=== PATIENT | male | born 1945 | race Caucasian/White ===

== ENCOUNTER → 2021-09-06 17:05 | Outpatient (BNVA) | payer MEDICARE, SELFPAY | PROVIDERS: Visit Provider Family Medicine | DX: G30.9 Alzheimer's disease, unspecified (principal); F02.80 Dementia in other diseases classified elsewhere, unspecified severity, without behavioral disturbance, psychotic disturbance, mood disturbance, and anxiety; F41.9 Anxiety disorder, unspecified | CPT/HCPCS: 80053; 84443; 85025 ==

== ENCOUNTER 2021-09-28 10:22 | Emergency (ER) | payer MEDICARE, SELFPAY ==
[2021-09-28 10:25] VITALS: BP 143/81; PULSE 82; RESP 16; O2SAT 97
--- NOTE | 2021-09-28 10:37 | CT_ITS ---
WS: [id number] CT HEAD NONCONTRAST HISTORY: fall/closed head injury TECHNIQUE: Contiguous axial imaging performed through the brain in 2.5 mm imaging. Bone and soft tiss ue windows. Sagittal and coronal reformats reviewed. All CT scans at [facility] use at least one of these dose optimization techniques: automated exposure control; mA and/or kV adjustment per pa tient size (includes targeted exams where dose is matched to clinical indication); or iterative recon struction. DLP: 819.08 mGy.cm COMPARISON: None available. No acute intracranial hemorrhage, midline shift or mass effect. Mild atrophy and mild small vessel ischemic disease. Small lacunar infarct RIGHT basal ganglia. Ventricles: Normal size with no hydrocephalus. No inferior displacement of cerebellar tonsils. Paranasal sinuses: Mild mucoperiosteal thickening in the anterior RIGHT ethmoid air cells. No air-flu id levels. Mastoid air cells: Well pneumatized. Calvarium and scalp: Skull is intact with no soft tissue edema or swelling. CT/CT head wo con* [id number] IMPRESSION: 1. No acute intracranial hemorrhage or edema. 2. Mild atrophy and mild small vessel ischemic disease.
--- NOTE | 2021-09-28 10:37 | ED_ITS ---
HPI - General Adult General: Chief complaint: General Medical Stated complaint: FOUND IN FLOOR, UNSURE IF FALL Time Seen by Provider: 09/28/21 10:26 Source: patient Mode of arrival: ambulatory Limitations: no limitations History of Present Illness: 76-year-old male [facility]. He was on the floor but was not sure how long. He denies any pain. Patient regularly will have falls or episodes where he is found on the floor. Called the [facility] dated found him on the sitting on the floor evidently does this often he was unwitnessed they report a blood pressure of 80 systolic he is awake and alert very conversive now but unable to really convey any meaningful immediate information or history because of his dementia. He denies chest pain abdominal pain headache or any other injury. He is able to ambulate and we actually had to put a sitter on him to keep him from crawling out of bed for a time. Onset (ago): minute(s) Location: head Relieving factors: none Exacerbating factors: none Treatments prior to arrival: none Review of Systems General: Reports: ROS unobtainable due to mental status (Limited due to mental status but very broad categories no specific details) PFSH ED PFSH: Medical History (Updated 09/28/21 @ 13:44 by Tristen Toledo DO) Dementia Social History Smoking and tobacco status: never smoked Alcohol intake: never Physical Exam Const: COMMON NORMALS: no acute distress GENERAL APPEARANCE: comfortable ORIENTATION/CONSCIOUSNESS: Yes awake HENMT: COMMON NORMALS: normocephalic, atraumatic and hearing grossly normal bilaterally HEAD & SCALP: normocephalic and atraumatic Eye: COMMON NORMALS: Equal, round and reactive pupils present, EOMs intact bilaterally, conjunctivae normal and no scleral icterus CONJUNCTIVA: Yes conjunctivae normal PUPIL: Yes Equal, round and reactive pupils present Neck/C-Spine: COMMON NORMALS: full ROM, no lymphadenopathy, supple and no JVD Resp: COMMON NORMALS: normal respiratory effort, No retractions, No use of accessory muscles and clear to auscultation bilaterally AUSCULTATION: clear to auscultation bilaterally Cardio: COMMON NORMALS: no JVD, regular rate, regular rhythm and No murmurs present (Cardio) RATE: regular rate RHYTHM: regular rhythm GI: COMMON NORMALS: Soft to palpation and No hepatosplenomegaly present AUSCULTATION: Yes normoactive bowel sounds PALPATION: Yes Soft to palpation, No Tenderness to palpation present (GI), No Guarding due to palpation present (GI) and Yes No hepatosplenomegaly present Extremity: COMMON NORMALS: normal to inspection, capillary refill normal, no clubbing, cyanosis or edema, no calf tenderness and no pedal edema Skin: COMMON NORMALS: no rashes or lesions noted GENERAL SKIN EXAM: no rashes or lesions noted Course Vital Signs: Vital signs: Vital Signs Pulse Rate 82 09/28/21 10:25 Respiratory Rate 16 09/28/21 10:25 Blood Pressure 143/81 09/28/21 10:25 Pulse Oximetry 97 09/28/21 10:25 MDM - General Adult Medical Decision Making Patient allowed exam but only EKGs he would not allow any blood draws. Called and check to the [facility]iary what it happened see HPI known. He has no evidence of particular injuries blood pressure is good at this time I do not have any real reason to force him to allow us to draw blood we tried several times and he continues to refuse. We will go and discharge him back to the [facility] asked him to monitor vitals every 2 hours x3 and report to the primary care doctor. Medical Records I reviewed the patient's medical records. Lab Data I reviewed the patient's lab results. Radiology Impressions Head CT 09/28/21 10:37 IMPRESSION: 1. No acute intracranial hemorrhage or edema. 2. Mild atrophy and mild small vessel ischemic disease. Discharge Plan Discharge Patient Disposition: Home Clinical Impression: Alzheimer's dementia Condition: Stable Prescriptions: No Action donepezil 10 mg tablet 10 mg PO BEDTIME 0RF quetiapine [Seroquel] 100 mg tablet 100 mg PO BID Qty: 60 2RF Vitamin B-12 2,500 mcg Tablet, Sublingual 2,500 mcg PO DAILY 0RF sertraline 100 mg tablet 100 mg PO DAILY 0RF lorazepam 1 mg tablet 1 mg PO BID PRN (Reason: Anxiety) 0RF Discharge Orders: Discharge ED (Routine); Ordered 09/28/21 Ordered By: Tristen Toledo Discharge Diet: Usual diet Discharge Activity: Resume usual activity Patient Instructions: Opioid Safety Activity Restrictions/Additional Instructions: Monitor vitals every 2 hours x3 report to primary physician follow-up as needed. Coding Level of Care Code ED Dish Technician for Maura Biggs
--- NOTE | 2021-09-28 10:38 | ECG_ITS ---
[facility] Test Date: 2021-09-28 Pat Name: Jaden Stanley Department: Room: Gender: Male Senior Accounting Analyst: : 1945 Requested By: Tristen Langford Order Number: [id number] Milly MD: Doris Almazan M.D. Measurements Intervals [place] Rate: 75 P: 59 AK: 176 QRS: 68 QRSD: 84 T: 61 QT: 407 QTc: 457 Interpretive Statements SINUS RHYTHM No previous ECG available for comparison Electronically Signed On 09-28-2021 18:38:08 CDT by Doris Almazan M.D. [id number]
--- NOTE | 2021-09-28 12:38 | ECG_ITS ---
[facility] Test Date: 2021-09-28 Pat Name: Jaden Stanley Department: Room: Gender: Male Emergency Medicine: : 1945 Requested By: Tristen Langford Order Number: [id number] Milly MD: Doris Almazan M.D. Measurements Intervals [place] Rate: 59 P: 58 NC: 184 QRS: 60 QRSD: 90 T: 63 QT: 427 QTc: 423 Interpretive Statements SINUS BRADYCARDIA Compared to ECG 09/28/2021 11:12:47 Sinus rhythm no longer present Electronically Signed On 09-28-2021 18:42:42 CDT by Doris Almazan M.D. [id number]
== END 2021-09-28 14:56 | disposition home or self-care (01) ==
PROVIDERS: Emergency Provider Family Medicine
DX: G30.9 Alzheimer's disease, unspecified (principal); F02.80 Dementia in other diseases classified elsewhere, unspecified severity, without behavioral disturbance, psychotic disturbance, mood disturbance, and anxiety
CPT/HCPCS: 70450; 93005; 99282

== ENCOUNTER 2021-10-28 18:10 | Outpatient (CLI) | payer MEDICARE, SELFPAY ==
[2021-10-28 18:20] LABS: Add Urine Microscopic? NO; Charge for UA Resulting for Rev
[2021-10-28 18:32] LABS: Bilirubin Urine Neg (Negative); Blood Urine Neg (Negative); Glucose Urine UA Norm (Normal); Ketones Urine Negative (Negative); Leukocyte Esterase Urine Negative (Negative); Nitrate Urine Negative (Negative); Protein Urine Neg (Negative); Urine Appearance Clear (CLEAR); Urine Color Yellow (Yellow); Urobilinogen Urine Norm (Negative); pH Urine 7 (5-7)
== END 2021-10-28 18:11 | disposition home or self-care (01) ==
PROVIDERS: Visit Provider Family Medicine
DX: N39.0 Urinary tract infection, site not specified (principal)
CPT/HCPCS: 81003; 87086

== ENCOUNTER → 2023-02-23 15:39 | Outpatient (BNVA) | payer MEDICARE, SELFPAY | PROVIDERS: PCP Family Medicine; Visit Provider Emergency Medicine | DX: I70.90 Unspecified atherosclerosis (principal); J06.9 Acute upper respiratory infection, unspecified | CPT/HCPCS: 71046; 87426 ==

== ENCOUNTER 2023-04-17 11:02 | Emergency (ER) | payer MEDICARE, SELFPAY ==
[2023-04-17 11:02] VITALS: BMI 25.0
[2023-04-17 11:06] VITALS: BP 126/86; PULSE 90; RESP 17; TEMP 37.2; O2SAT 85
[2023-04-17 11:08] VITALS: O2SAT 85
--- NOTE | 2023-04-17 11:10 | XRR_ITS ---
PROCEDURE INFORMATION: Exam: XR Chest Exam date and time: 04/17/2023 11:14 AM Age: 77 years old Clinical indication: Pain; Chest pressure; Additional info: Hypoxia TECHNIQUE: Imaging protocol: Radiologic exam of the chest. Views: 1 view. COMPARISON: CR XR chest 2V* [id number] 02/23/2023 3:50 PM FINDINGS: Lungs: There is no consolidation. Pleural spaces: There is no pleural effusion or pneumothorax. Heart/Mediastinum: Cardiomediastinal contours are unremarkable. Bones/joints: Bones are unremarkable. XR/XR chest 1V portable [id number] IMPRESSION: No acute findings.
--- NOTE | 2023-04-17 11:11 | W.ED.GENADLT ---
HPI - General Adult General: Chief complaint: General Medical Stated complaint: pain all over body Time Seen by Provider: 04/17/23 11:02 History of Present Illness: Patient presents via EMS with complaints of all over body pain. Patient does have severe dementia and has town planner at bedside. Caregiver said when he found him this morning he was hanging with his legs off the bed almost touching the floor with his blanket wadded up behind his low back. He said that every time he tried to move him he complained of pain in his low back in his buttock region. Patient is pleasant at the current and not complaining of any pain. Patient does live in the dementia unit and is usually up in active and walking around continuously. Review of Systems General: Reports: ROS unobtainable due to mental status (Limited by patient's dementia) [facility] ED PFSH: Medical History Dementia Social History Smoking and tobacco/nicotine status: never used tobacco/nicotine Alcohol intake: never Substance/Drug Use: never Physical Exam Const: COMMON NORMALS: no acute distress, average body habitus, no limitations, healthy appearing, alert and well nourished HENMT: COMMON NORMALS: normocephalic, atraumatic, hearing grossly normal bilaterally, external ears normal, Normal external nose present, moist oral mucous membranes and oropharynx normal HEAD & SCALP: normocephalic and atraumatic NOSE: Normal external nose present EXTERNAL EAR: Yes external ears normal Neck/C-Spine: COMMON NORMALS: full ROM, no lymphadenopathy, supple, no meningeal signs, no JVD and Thyroid normal THYROID: Thyroid normal Chest: COMMONS NORMALS: normal inspection of the chest and normal palpation of entire chest wall Resp: COMMON NORMALS: normal respiratory effort, No retractions, No use of accessory muscles and clear to auscultation bilaterally AUSCULTATION: clear to auscultation bilaterally Cardio: COMMON NORMALS: no JVD, regular rate, regular rhythm, S1 normal heart sound present, S2 normal heart sound present, No gallops present (Cardio), No clicks present (Cardio), No murmurs present (Cardio) and No rub (Cardio) RATE: regular rate RHYTHM: regular rhythm HEART SOUNDS: S1 normal heart sound present and S2 normal heart sound present GI: COMMON NORMALS: Normal to inspection, nondistended, normoactive bowel sounds present, Soft to palpation, non-tender, No hepatosplenomegaly present and no masses PALPATION: Yes Soft to palpation and Yes No hepatosplenomegaly present Extremity: NARRATIVE EXTREMITY EXAM: No pain with palpation negative for edema Neuro: SENSORIUM/ORIENTATION: Yes alert MENINGEAL SIGNS: Yes no meningeal signs Course Vital Signs: Vital signs: Vital Signs Temperature 98.9 F 04/17/23 11:06 Pulse Rate 80 04/17/23 12:06 Respiratory Rate 18 04/17/23 12:06 Blood Pressure 129/73 04/17/23 12:06 Pulse Oximetry 90 04/17/23 12:06 Oxygen Delivery Me thod Nasal Cannula 04/17/23 12:06 Oxygen Flow Rate 2 04/17/23 12:06 MDM - General Adult Medical Decision Making Patient was brought in for overall pain but when patient is asked he has no pain. Lab work was obtained which revealed a normal white count normal kidney function and normal urinalysis. Chest x-ray showed no acute findings. Patient be discharged back to the nursing facility to follow-up with his primary care for further evaluation testing. Differential Diagnosis Myalgia, dementia, pain Medical Records I reviewed the patient's medical records. Lab Data I reviewed the patient's lab results. 04/17/23 11:35 04/17/23 11:35 Radiology Impressions Chest X-Ray 04/17/23 11:10 IMPRESSION: No acute findings. Laboratory Results WBC 10.58 10^3/uL (3.29-11.43) 04/17/23 11:35 RBC 5.43 10^6/uL (3.85-5.65) 04/17/23 11:35 Hgb 16.00 g/dL (11.27-16.99) 04/17/23 11:35 Hct 50.1 % (37-53) 04/17/23 11:35 MCV 92.3 fl (82-101) 04/17/23 11:35 MCH 29.5 pg (27-33) 04/17/23 11:35 MCHC 31.9 g/dL (30-55) 04/17/23 11:35 RDW 13.5 % (12.1-15.1) 04/17/23 11:35 Plt Count 256 10^3/cmm (157-399) 04/17/23 11:35 MPV 10.2 fL (7.4-10.4) 04/17/23 11:35 Neut % (Auto) 83.7 % 04/17/23 11:35 Lymph % (Auto) 9.9 % 04/17/23 11:35 [place] % (Auto) 5.1 % 04/17/23 11:35 Eos % (Auto) 0.4 % 04/17/23 11:35 Baso % (Auto) 0.6 % 04/17/23 11:35 Neut # (Auto) 8.86 10^3/uL (1.8-7.7) H 04/17/23 11:35 Lymph # (Auto) 1.1 10^3/uL (0.8-4.8) 04/17/23 11:35 [place] # (Auto) 0.5 10^3/uL (0.2-0.9) 04/17/23 11:35 Eos # (Auto) 0.0 10^3/uL (0.0-0.8) 04/17/23 11:35 Baso # (Auto) 0.1 10^3/uL (0.0-0.1) 04/17/23 11:35 Nucleated RBC % (auto) 0 % 04/17/23 11:35 Nucleated RBCs # 0.0 /100WBC 04/17/23 11:35 Sodium 140 mmol/L (136-145) 04/17/23 11:35 Potassium 4.8 mmol/L (3.5-5.1) 04/17/23 11:35 Chloride 103 mmol/L (98-107) 04/17/23 11:35 Carbon Dioxide 27 mmol/L (22-29) 04/17/23 11:35 Anion Gap 14.8 (5-19) 04/17/23 11:35 BUN 22 mg/dL (8-23) 04/17/23 11:35 Creatinine 1.2 mg/dL (0.7-1.2) 04/17/23 11:35 GFR Calculation Not Reportable 04/17/23 11:35 Glucose 120 mg/dL (65-115) H 04/17/23 11:35 Calculated Osmolality 295 mOsm/kg (285-295) 04/17/23 11:35 Calcium 9.8 mg/dL (8.5-10.5) 04/17/23 11:35 Total Bilirubin 0.4 mg/dL (0.15-1.2) 04/17/23 11:35 AST 22 U/L (0-40) 04/17/23 11:35 ALT 19 U/L (0-41) 04/17/23 11:35 Alkaline Phosphatase 88 U/L (40-130) 04/17/23 11:35 Creatine Kinase 118 U/L (39-308) 04/17/23 11:35 Total Protein 8.6 g/dL (6.6-8.7) 04/17/23 11:35 Albumin 4.8 g/dL (3.5-5.2) 04/17/23 11:35 Globulin 3.8 g/dL (1.3-4.6) 04/17/23 11:35 Urine Color Dark yellow (Yellow) 04/17/23 13:19 Urine Appearance Cloudy (CLEAR) A 04/17/23 13:19 Urine pH 5 (5-7) 04/17/23 13:19 Ur Specific [place] 1.030 (1.005-1.030) 04/17/23 13:19 Urine Protein Neg (Negative) 04/17/23 13:19 Urine Glucose (UA) Norm (Normal) 04/17/23 13:19 Urine Ketones 1+ (Negative) H 04/17/23 13:19 Urine Blood 2+ (Negative) H 04/17/23 13:19 Urine Nitrate Negative (Negative) 04/17/23 13:19 Urine Bilirubin Neg (Negative) 04/17/23 13:19 Urine Urobilinogen Norm mg/dL (Negative) 04/17/23 13:19 Ur Leukocyte Esterase Negative (Negative) 04/17/23 13:19 Urine RBC Rare /hpf (0-2) 04/17/23 13:19 Urine WBC None /hpf (0-5) 04/17/23 13:19 Ur Squamous Epith Cells None /hpf (0-5) 04/17/23 13:19 Amorphous Sediment 4+ /hpf 04/17/23 13:19 Urine Bacteria 1+ /hpf (NONE) H 04/17/23 13:19 All radiology interpretation(s) finalized by discharge Discharge Plan Discharge Patient Disposition: Home Clinical Impression: Alzheimer's dementia Qualifiers: Alzheimer's disease onset: unspecified onset Dementia severity: severe Dementia behavioral or psychological symptom: unspecified whether behavioral, psychotic, or mood disturbance or anxiety Qualified Code(s): G30.9 - Alzheimer's disease, unspecified Condition: Stable Prescriptions: No Action donepezil 10 mg tablet 10 mg PO BEDTIME lorazepam 1 mg tablet 1 mg PO BID PRN (Reason: Anxiety) Qty: 60 4RF cyanocobalamin (vitamin B-12) [Vitamin B-12] 2,500 mcg Tablet, Sublingual 2,500 mcg PO DAILY sertraline 100 mg tablet 100 mg PO DAILY quetiapine 200 mg tablet 200 mg PO DAILY Discharge Orders: Discharge ED (Routine); Ordered 04/17/23 Ordered By: Teddy Castrejon Referrals: Lenny Gilliam DO [Primary Care Provider] - 1 week Activity Restrictions/Additional Instructions: All of your work-up did not reveal any source of pain. Please follow-up with your family practice physician within the next 7 to 10 days for further evaluation and treatment. Coding Level of Care Code ED Master Motorcycle Technician for Maura Biggs
[2023-04-17 11:43] LABS: Basophils # 0.1 10^3/uL (0.0-0.1); Basophils % 0.6 %; Eosinophils % 0.4 %; Hematocrit 50.1 % (37-53); Lymphocytes # 1.1 10^3/uL (0.8-4.8); Lymphocytes % 9.9 %; Mean Corpuscular HGB Conc 31.9 g/dL (30-55); Mean Corpuscular Hemoglobin 29.5 pg (27-33); Mean Corpuscular Volume 92.3 fl (82-101); Mean Platelet Volume 10.2 fL (7.4-10.4); Monocytes # 0.5 10^3/uL (0.2-0.9); Monocytes % 5.1 %; Neutrophils # 8.86 10^3/uL (1.8-7.7); Neutrophils % 83.7 %; Nucleated Red Blood Cells % 0 %; Platelet Count 256 10^3/cmm (157-399); Red Blood Count 5.43 10^6/uL (3.85-5.65); Red Cell Distribution Width 13.5 % (12.1-15.1); White Blood Count 10.58 10^3/uL (3.29-11.43)
[2023-04-17 12:00] LABS: Alanine Aminotransferase 19 U/L (0-41); Albumin Level 4.8 g/dL (3.5-5.2); Alkaline Phosphatase 88 U/L (40-130); Anion Gap 14.8 (5-19); Aspartate Amino Transferase 22 U/L (0-40); Blood Urea Nitrogen 22 mg/dL (8-23); Calcium 9.8 mg/dL (8.5-10.5); Carbon Dioxide 27 mmol/L (22-29); Chloride 103 mmol/L (98-107); Creatine Phosphokinase 118 U/L (39-308); Globulin 3.8 g/dL (1.3-4.6); Glucose 120 mg/dL (65-115); Osmolality Calculated 295 mOsm/kg (285-295); Potassium 4.8 mmol/L (3.5-5.1); Sodium 140 mmol/L (136-145); Total Bilirubin 0.4 mg/dL (0.15-1.2); Total Protein 8.6 g/dL (6.6-8.7)
[2023-04-17 12:06] VITALS: BP 129/73; PULSE 80; RESP 18; O2SAT 90
[2023-04-17 13:52] LABS: Urine Appearance Cloudy (CLEAR); Urine Color Dark Yellow (Yellow); pH Urine 5 (5-7)
[2023-04-17 13:53] LABS: Add Urine Culture? No; Add Urine Microscopic? YES; Amorphous Sediment Urine 4+ /hpf; Bacteria Urine 1+ /hpf; Bilirubin Urine Neg (Negative); Blood Urine 2+ (Negative); Glucose Urine UA Norm (Normal); Ketones Urine 1+ (Negative); Leukocyte Esterase Urine Negative (Negative); Nitrate Urine Negative (Negative); Protein Urine Neg (Negative); RBC Urine RARE /hpf (0-2); Urobilinogen Urine Norm (Negative)
[2023-04-17 14:09] VITALS: BP 129/73; PULSE 80; RESP 18; TEMP 36.6; O2SAT 90
== END 2023-04-17 14:11 | disposition home or self-care (01) ==
PROVIDERS: Emergency Provider Emergency Medicine; PCP Family Medicine
DX: G30.9 Alzheimer's disease, unspecified (principal); F02.C0 Dementia in other diseases classified elsewhere, severe, without behavioral disturbance, psychotic disturbance, mood disturbance, and anxiety
CPT/HCPCS: 36415; 71045; 80053; 81001; 82550; 85025; 99284

== ENCOUNTER 2024-03-09 11:54 | Outpatient (CLI) | payer MEDICARE, SELFPAY ==
[2024-03-09 12:15] LABS: Basophils # 0.1 10^3/uL (0.0-0.1); Basophils % 0.7 %; Eosinophils # 0.3 10^3/uL (0.0-0.8); Eosinophils % 4.1 %; Hematocrit 45.1 % (37-53); Lymphocytes # 2.2 10^3/uL (0.8-4.8); Lymphocytes % 26.7 %; Mean Corpuscular HGB Conc 33.3 g/dL (30-55); Mean Corpuscular Hemoglobin 31.2 pg (27-33); Mean Corpuscular Volume 93.8 fl (82-101); Mean Platelet Volume 10.7 fL (7.4-10.4); Monocytes # 0.5 10^3/uL (0.2-0.9); Neutrophils # 5.01 10^3/uL (1.8-7.7); Neutrophils % 62.1 %; Nucleated Red Blood Cells % 0 %; Platelet Count 197 10^3/cmm (157-399); Red Blood Count 4.81 10^6/uL (3.85-5.65); Red Cell Distribution Width 12.8 % (12.1-15.1); White Blood Count 8.06 10^3/uL (3.29-11.43)
[2024-03-09 12:44] LABS: Alanine Aminotransferase 14 U/L (0-41); Albumin Level 4.3 g/dL (3.5-5.2); Alkaline Phosphatase 62 U/L (40-130); Anion Gap 13.9 (5-19); Aspartate Amino Transferase 16 U/L (0-40); Blood Urea Nitrogen 21 mg/dL (8-23); Calcium 8.9 mg/dL (8.5-10.5); Carbon Dioxide 27 mmol/L (22-29); Chloride 106 mmol/L (98-107); Chol HDL Ratio 7.64 mg/dL (1.0-5.00); Cholesterol 275 mg/dL (0-200); Globulin 2.2 g/dL (1.3-4.6); Glucose 120 mg/dL (65-115); HDL Cholesterol 36 mg/dL (60-100); LDL Cholesterol Calculated 209 mg/dL (50-129); LDL HDL Ratio 5.81 RATIO (0.00-3.22); Osmolality Calculated 300 mOsm/kg (285-295); Potassium 3.9 mmol/L (3.5-5.1); Sodium 143 mmol/L (136-145); Total Bilirubin 0.4 mg/dL (0.15-1.2); Total Protein 6.5 g/dL (6.6-8.7); Triglycerides 150 mg/dL (0-150)
== END 2024-03-09 11:55 | disposition home or self-care (01) ==
PROVIDERS: PCP Family Medicine; Visit Provider Family Medicine
DX: I10 Essential (primary) hypertension (principal)
CPT/HCPCS: 80053; 80061; 85025

== ENCOUNTER 2024-08-13 17:04 | Outpatient (CLI) | payer MEDICARE, SELFPAY ==
[2024-08-13 17:27] LABS: Bilirubin Urine Negative (Negative); Blood Urine 1+ (Negative); Glucose Urine UA Negative (Normal); Ketones Urine Trace (Negative); Leukocyte Esterase Urine Negative (Negative); Nitrate Urine Negative (Negative); Protein Urine Negative (Negative); Urine Appearance Cloudy (CLEAR); Urine Color Dark Yellow (Yellow); pH Urine 5.5 (5-7)
[2024-08-13 17:57] LABS: Add Urine Microscopic? YES
[2024-08-13 17:59] LABS: Bacteria Urine TRACE /hpf; Mucus Urine 3+ /hpf; Squamous Epithelial Cell Urine 0-4 /hpf (0-5)
[2024-08-13 18:00] LABS: Add Urine Culture? No
== END 2024-08-13 17:05 | disposition home or self-care (01) ==
LOC: LAB 17:11
PROVIDERS: PCP Family Medicine; Visit Provider Family Medicine
DX: N39.0 Urinary tract infection, site not specified (principal)
CPT/HCPCS: 81001; 87086

== ENCOUNTER 2024-10-29 13:43 | Outpatient (CLI) | payer MEDICARE, SELFPAY ==
[2024-10-29 14:00] LABS: Bilirubin Urine Negative (Negative); Blood Urine 1+ (Negative); Glucose Urine UA Negative (Normal); Ketones Urine Negative (Negative); Leukocyte Esterase Urine Negative (Negative); Nitrate Urine Negative (Negative); Protein Urine Negative (Negative); Specific Gravity, Urine 1.025 (1.005-1.030); Urine Appearance Clear (CLEAR); Urine Color Yellow (Yellow)
[2024-10-29 14:05] LABS: Add Urine Microscopic? YES; Bacteria Urine None Seen /hpf; Hyaline Casts Urine 4.11 /lpf; Squamous Epithelial Cell Urine 0-5 /hpf (0-5); WBC Urine 0-5 /hpf (0-5)
== END 2024-10-29 13:44 | disposition home or self-care (01) ==
PROVIDERS: PCP Family Medicine; Visit Provider Family Medicine
DX: N39.0 Urinary tract infection, site not specified (principal)
CPT/HCPCS: 81001; 87086

== ENCOUNTER 2025-02-05 17:42 | Outpatient (CLI) | payer MEDICARE, SELFPAY ==
[2025-02-05 17:50] LABS: Hematocrit 48.5 % (37-53); Hemoglobin 15.70 g/dL (11.27-16.99); Mean Corpuscular HGB Conc 32.4 g/dL (30-55); Mean Corpuscular Hemoglobin 32.5 pg (27-33); Mean Corpuscular Volume 100.4 fl (82-101); Nucleated Red Blood Cells % 0 %; Platelet Count 235 10^3/cmm (157-399); Red Blood Count 4.83 10^6/uL (3.85-5.65); White Blood Count 9.37 10^3/uL (3.29-11.43)
== END 2025-02-05 17:43 | disposition home or self-care (01) ==
LOC: LAB 17:45
PROVIDERS: PCP Family Medicine; Visit Provider Family Medicine
DX: I10 Essential (primary) hypertension (principal)
CPT/HCPCS: 85025